=== PATIENT | male | born 1975 ===

== ENCOUNTER 2018-03-30 05:33 | Inpatient (IN) | payer OTHER ==
[2018-03-30 05:46] VITALS: BMI 21.2
[2018-03-30] MEDS ORDERED: Bacitracin 500 Units/gm Oint Foilpak UD TOP STA (05:46)
--- NOTE | 2018-03-30 05:54 | ED PDOC ---
Arrival/HPI - General Time Seen by Provider: 03/30/18 05:46 Historian: Patient, Other (employer) - History of Present Illness Narrative History of Present Illness (Text): you were treated in the ED today for hx of uptodate tetanus past 5 years and was doing some machinery work and injured the left 2nd finger with cut/blood but otherwise without any nausea/vomiting/headache/dizziness/difficulty breathing/chest pain/abdomen pain/numbness/tingling/loss of limb function/pain with urination. 03/30/18 05:48 03/30/18 05:48 03/30/18 05:48 Time/Duration: 1 hour Symptom Onset: Sudden Symptom Course: Unchanged Quality: Aching Severity Level: 2 Activities at Onset: Rest Context: Sitting Past Medical History - Provider Review Nursing Documentation Reviewed: Yes - Travel History Have you recently traveled outside [place] w/in the past 3 mons?: No Family/Social History - Physician Review Nursing Documentation Reviewed: Yes Family/Social History: No Known Family HX Allergies/Home Meds Allergies/Adverse Reactions: Allergies No Known Allergies Allergy (Verified 03/30/18 05:45) Home Medications: Home Meds Medication Instructions Recorded Confirmed No Known Home Med 03/30/18 03/30/18 Review of Systems - Review of Systems Constitutional: Normal Eyes: Normal ENT: Normal Respiratory: Normal Cardiovascular: Normal Gastrointestinal: Normal Genitourinary Male: Normal Musculoskeletal: Joint Swelling Skin: Normal Neurological: Normal Endocrine: Normal Hemo/Lymphatic: Normal Psychiatric: Normal Physical Exam Vital Signs Reviewed: Yes Vital Signs Temp Pulse Resp BP Pulse Ox 03/30/18 07:30 80 16 152/70 H 98 03/30/18 05:43 98.1 F 88 18 163/68 H 100 Temperature: Afebrile Blood Pressure: Hypertensive Pulse: Regular Respiratory Rate: Normal Appearance: Positive for: Well-Appearing, Non-Toxic, Comfortable Pain Distress: None Mental Status: Positive for: Alert and Oriented X 3 - Systems Exam Head: Present: Atraumatic, Normocephalic Pupils: Present: PERRL Extroacular Muscles: Present: EOMI Conjunctiva: Present: Normal Ears: Present: Normal Mouth: Present: Moist Mucous Membranes Pharnyx: Present: Normal Nose (External): Present: Atraumatic Nose (Internal): Present: Normal Inspection Neck: Present: Normal Range of Motion Respiratory/Chest: Present: Clear to Auscultation, Good Air Exchange Cardiovascular: Present: Regular Rate and Rhythm Abdomen: No: Tenderness, Distention, Normal Bowel Sounds, Peritoneal Signs, Rebound, Guarding, McBurney's Point Tender, Rovsing's Sign Present, Hernias, Feeding Tubes, Ostomy Tubes, Mass/Organomegaly, Scars, Other Back: Present: Normal Inspection Upper Extremity: Present: Other ( left 2nd fingertip injury/ with cut/blood but no active bleeding and fingernail slightly displaced at the top with discomfort , but otherwise good range of motion/warm/sensation/pink/good radial pulse and no other bony tenderness) Lower Extremity: Present: Normal Inspection Neurological: Present: GCS=15, CN II-XII Intact, Speech Normal, Motor Func Grossly Intact Skin: Present: Warm, Other (see UE) Psychiatric: Present: Alert, Oriented x 3, Normal Insight, Normal Concentration Medical Decision Making ED Course and Treatment: you were treated in the ED today for hx of uptodate tetanus past 5 years and was doing some machinery work and injured the left 2nd finger with cut/blood but otherwise without any nausea/vomiting/headache/dizziness/difficulty breathing/chest pain/abdomen pain/numbness/tingling/loss of limb function/pain with urination. You were otherwise breathing easily, smiling and talking with your employer, good strength/sensation, walking easily, clear lungs, no abdomen tenderness, left 2nd fingertip injury/ with cut/blood but no active bleeding and fingernail slightly displaced at the top with discomfort, but otherwise good range of motion/warm/sensation/pink/good radial pulse and no other bony tenderness, no fever temp 98.1, stable heart rate 88, stable breathing rate 18, excellent oxygen level 100% room air, elevated blood pressure 163/100 which we recommend repeat in 2-3 days primary care office to determine further treatment , left hand xray radiology left 2nd finger with distal tip fracture, keflex, motrin, percocet, anti-septic soak, observation, left 2nd finger nerve block and fingernail and finger now evaluated closely and significant thickened debris removed from fingertip without amputation noted but left 2nd finger medial laceration adjacent to fingernail which appears to be avulsed. d/w Dr. Restrepo orthopedics who stated npo, cbc, cmp, coags, iv cefazolin, ct left hand/ fingers and he will followup for possible operative management. 03/30/18 09:[address] Issa to fu ct, labs and Dr. Shetty orthopedics for final disposition. Reassessment Condition: Re-examined, Improved - RAD Interpretation Radiology Orders: 03/30/18 05:47 HAND LEFT 3 VIEWS ROUTINE [RAD] Stat 03/30/18 08:53 EXT UPPER W/O CONTRAST RIGHT [CT] Stat Diploma Maker: ED Physician (left hand xray with distal tip 2nd finger amputation w fracture) - Medication Orders Current Medication Orders: Discontinued Medications Bacitracin (Bacitracin) 1 ea TOP STAT STA Stop: 03/30/18 05:47 Last Admin: 03/30/18 06:02 Dose: 1 ea Cephalexin Monohydrate (Keflex) 500 mg PO STAT STA PRN Reason: Protocol Stop: 03/30/18 05:48 Last Admin: 03/30/18 06:03 Dose: 500 mg Ibuprofen (Motrin Tab) 800 mg PO STAT STA Stop: 03/30/18 05:47 Last Admin: 03/30/18 06:02 Dose: 800 mg Lidocaine HCl (Lidocaine 2% 20ml Vial) 10 ml IJ ONCE STA Stop: 03/30/18 07:59 Last Admin: 03/30/18 08:22 Dose: 10 ml Comments: Given to doctor to use Oxycodone/Acetaminophen (Percocet 5/325 Mg Tab) 1 tab PO STAT STA Stop: 03/30/18 08:27 Last Admin: 03/30/18 08:40 Dose: [address] [facility] Pain Assessment Document 03/30/18 08:40 [facility] [place]Rec[place] 03/30/18 08:40 [facility] [id number] Pain Reassessment Is this a pain reassessment? No Sleep Is patient sleeping during reassessment? No Presence of Pain Presence of Pain Yes Pain Scale Used Pain Scale Used Numeric Description Intensity of Pain at present 7 Disposition/Present on Arrival - Present on Arrival Any Indicators Present on Arrival: No - Disposition Have Diagnosis and Disposition been Completed?: Yes Diagnosis: Open finger fracture
[2018-03-30] MEDS ORDERED: Lidocaine 2% Inj (20ml) IJ STA (07:58)
[2018-03-30] MEDS ORDERED: Oxycodone/Acetaminophen 5/325 mg Tab PO STA (08:26)
[2018-03-30] MEDS ORDERED: ceFAZolin 1 gm in NS 1 GM/100 ML BAG IVPB STA (08:57)
[2018-03-30 09:57] LABS: BASO # 0.04 K/mm3 (0.0-2.0); BASO % 0.4 % (0.0-3.0); EOS # 0.2 (0.0-0.7); EOS % 1.5 % (1.5-5.0); GRAN # 6.97 (1.4-6.5); HEMOGLOBIN 16.7 g/dL (14.0-18.0); LYMPH # 2.3 (1.2-3.4); LYMPH % 22.7 % (22.0-35.0); MEAN CELL VOLUME 88.5 fl (80.0-105.0); MEAN CORPUSCULAR HEMOGLOBIN 31.5 pg (25.0-35.0); MEAN CORPUSCULAR HGB CONC 35.5 g/dl (31.0-37.0); MEAN PLATELET VOLUME 10.6 fl (7.0-11.0); MONO # 0.8 (0.1-0.6); MONO % 7.4 % (1.0-6.0); RBC 5.31 10^6/uL (3.5-6.1); RED CELL DISTRIBUTION WIDTH 12.3 % (11.5-14.5); WHITE BLOOD COUNT 10.3 10^3/ul (4.5-11.0)
[2018-03-30 10:01] LABS: INR 0.97 (0.93-1.08); PROTHROMBIN TIME 11.2 SECONDS (9.4-12.5)
[2018-03-30 10:06] LABS: ALB/GLOB RATIO 1.4 (1.1-1.8); ALBUMIN 4.7 g/dL (3.0-4.8); ALT/SGPT 131 U/L (7-56); AST/SGOT 63 U/L (17-59); BLOOD UREA NITROGEN 14 mg/dL (7-21); CALCIUM 9.6 mg/dL (8.4-10.5); GFR AFRICAN-AMERICAN > 60; GFR NON-AFRICAN AMERICAN > 60
--- NOTE | 2018-03-30 10:08 | RAD ---
PROCEDURE: Left Hand Radiographs. HISTORY: 42yoM, with lef 2nd finger injury COMPARISON: None. FINDINGS: BONES: There is a transverse angulated fracture through the 2nd distal phalanx JOINTS: Normal. No osteoarthritic changes. SOFT TISSUES: Normal. OTHER FINDINGS: None. IMPRESSION: There is a transverse angulated fracture through the 2nd distal phalanx
--- NOTE | 2018-03-30 10:53 | CT ---
PROCEDURE: HISTORY: 42M, please eval L hand from wrist to fingertips COMPARISON: None TECHNIQUE: FINDINGS: Transverse nondisplaced fracture of the distal phalanx of the 2nd digit. Extensive air and edema and infiltration of the 2nd digital soft tissues extending towards the dorsum of the hand. The remainder of the examination is unremarkable. IMPRESSION: Transverse nondisplaced fracture of the distal phalanx of the 2nd digit. Extensive air and edema and infiltration of the 2nd digital soft tissues extending towards the dorsum of the hand.
--- NOTE | 2018-03-30 13:57 | CP.PCM.HP ---
<Guanako Sherman - Last Filed: 03/30/18 14:37> History of Present Illness - History of Present Illness History of Present Illness: Medicine H&P for Dr. Tripathi cc: broken finger 42 M with no PMH presents to [facility] for complaint of left 2nd finger injury. Patient states that he works at a [employer] [place] and this morning he was using a mixing machine when he had an accident. The machine smashed his finger and he noticed the bone sticking out. Patient reports that he had a tetanus booster 5 years ago. He rates pain as severe. He describes it as constant and throbbing. Denies any alleviating or aggravating factors. Denies fever/chills, chest pain, SOB, abdominal pain, nausea/vomiting, diarrhea or urinary symptoms. PMH: denies Meds: denies Allergy: denied PSH: denies FH: denes Social: denies tobacco/EtOH/illicit drug use, lives with and 4 kids, works in bakery Present on Admission - Present on Admission Any Indicators Present on Admission: No History of DVT/PE: No History of Uncontrolled Diabetes: No Urinary Catheter: No Decubitus Ulcer Present: No Decubitus Ulcer Stage: Unstageable History Surgical Site Infection Following: None Review of Systems - Review of Systems All systems: reviewed and no additional remarkable complaints except (as per hpi ) Past Patient History - Past Social History Smoking Status: Never Smoked - PSYCHIATRIC Hx Substance Use: No - SURGICAL HISTORY Hx Surgeries: No Meds Allergies/Adverse Reactions: Allergies Allergy/AdvReac Type Severity Reaction Status Date / Time No Known Allergies Allergy Verified 03/30/18 05:45 Physical Exam - Constitutional Appears: No Acute Distress - Head Exam Head Exam: ATRAUMATIC, NORMOCEPHALIC - Eye Exam Eye Exam: EOMI, Normal appearance Pupil Exam: PERRL - ENT Exam ENT Exam: Mucous Membranes Moist - Neck Exam Neck exam: Positive for: Full Rom - Respiratory Exam Respiratory Exam: Clear to Auscultation Bilateral, NORMAL BREATHING PATTERN - Cardiovascular Exam Cardiovascular Exam: REGULAR RHYTHM, +S1, +S2 - GI/Abdominal Exam GI & Abdominal Exam: Normal Bowel Sounds, Soft. absent: Tenderness - Extremities Exam Extremities exam: Positive for: normal capillary refill, pedal pulses present Additional comments: Left hand 2nd digit with communicating fracture covered with dressing - Back Exam Back exam: absent: CVA tenderness (L), CVA tenderness (R) - Neurological Exam Neurological exam: Alert, CN II-XII Intact, Oriented x3 - Psychiatric Exam Psychiatric exam: Normal Affect, Normal Mood - Skin Skin Exam: Dry, Warm Results - Vital Signs Recent Vital Signs: Last Vital Signs Temp 98.3 F 03/30/18 13:04 Pulse 75 03/30/18 13:17 Resp 18 03/30/18 13:04 BP 135/71 03/30/18 13:04 Pulse Ox 98 03/30/18 13:04 - Labs Result Diagrams: 03/30/18 09:49 03/30/18 09:49 Assessment & Plan - Assessment and Plan (Free Text) Assessment: 42 M with no PMH presents for Left 2nd finger communicating fracture Plan: Left 2nd Finger Fracture -NPO -Ortho consult, Dr. Restrepo, help appreciated -OR today for repair -Ancef given in ED -Tetanus status up-to-date -Percocet PRN for mod pain -Motrin PRN for mild pain Transaminitis -f/u HIV, Hep panel, RPR -Monitor LFTs Case seen and discussed with Dr. Deuce Sherman PGY1 - Date & Time Date: 03/30/18 Time: 13:00 <Jasmyne Tripathi - Last Filed: 03/30/18 17:02> Results - Vital Signs Recent Vital Signs: Last Vital Signs Temp 97.4 F L 03/30/18 16:21 Pulse 63 03/30/18 16:21 Resp 13 03/30/18 16:21 BP 126/78 03/30/18 16:21 Pulse Ox 97 03/30/18 16:21 - Labs Result Diagrams: 03/30/18 09:49 03/30/18 09:49 Attending/Attestation - Attestation I have personally seen and examined this patient.: Yes I have fully participated in the care of the patient.: Yes I have reviewed all pertinent clinical information: Yes Notes (Text): 03/30/18 16:58 Medical record note made by the resident after discussion with my direction and input after the patient was personally seen and examined by me. I have reviewed the chart and agree that the record accurately reflects by personal performance of the history, physical exam, data review, and medical decision-making, in the course for the patient. I have also personally directed the plan of care. 42 M with no PMH with left index finger transverse fracture of distal phalanx .He was evaluated by orthopediac and is going for surgery today. Patient is also found to have elevated transaminase, denies any history of alcohol, drug abuse or hepatitis. We will check hepatitis profile and HIV.
[2018-03-30] MEDS ORDERED: HYDROmorphone 0.5 mg/0.5 ml ISec IVP PRN ×2 (14:03→16:24)
[2018-03-30] MEDS ORDERED: Propofol 10 mg/ml Inj (20 ML) ONE (14:09)
[2018-03-30] MEDS ORDERED: Midazolam 2 MG/2 ML VIAL ONE (14:09)
[2018-03-30] MEDS ORDERED: Rocuronium 10 mg/ml (5 ml) ONE (14:09)
[2018-03-30] MEDS ORDERED: Lactated Ringer's 1,000 ML IV SCH ×2 (14:15→16:30)
--- NOTE | 2018-03-30 14:37 | CP.PCM.CON ---
History of Present Illness - History of Present Illness History of Present Illness: Orthopedic consultation Dr. 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 RHD. Denies pain to other areas or fingers. non smoker NKDA PSH: circ PMH: denies Review of Systems - Review of Systems All systems: reviewed and no additional remarkable complaints except - Musculoskeletal Musculoskeletal: As Per HPI Past Patient History - Past Medical History & Family History Past Family History: Reviewed and not pertinent - Past Social History Smoking Status: Never Smoked - CARDIAC Hx Pacemaker: No - NEUROLOGICAL Hx Paralysis: No - MUSCULOSKELETAL/RHEUMATOLOGICAL Hx Musculoskeletal Disorders: No - PSYCHIATRIC Hx Substance Use: No - SURGICAL HISTORY Hx Surgeries: No Meds Allergies/Adverse Reactions: Allergies Allergy/AdvReac Type Severity Reaction Status Date / Time No Known Allergies Allergy Verified 03/30/18 05:45 - Medications Medications: Current Medications Hydromorphone HCl (Dilaudid) 0.5 mg IVP Q15M PRN PRN Reason: Pain, moderate (4-7) Stop: 03/30/18 16:03 Lactated Ringer's (Lactated Ringer's) 1,000 mls @ 75 mls/hr IV .[id number] SALLY Stop: 03/30/18 16:16 Ibuprofen (Motrin Tab) 400 mg PO Q6H PRN PRN Reason: Pain, Mild (1-3) Oxycodone/Acetaminophen (Percocet 5/325 Mg Tab) 1 tab PO Q4 PRN PRN Reason: Pain, moderate (4-7) Stop: 04/02/18 13:59 Physical Exam - Constitutional Appears: Well, In Acute Distress - Extremities Exam Additional comments: Left index finger: avulsion of nail from nail fold, small lac to side of finger , bleeding but controlled. tip of finger flexed. Complains of pain when touching tip of finger Results - Vital Signs Recent Vital Signs: Last Vital Signs Temp 97.7 F 03/30/18 14:05 Pulse 78 03/30/18 14:05 Resp 20 03/30/18 14:05 BP 137/80 03/30/18 14:05 Pulse Ox 99 03/30/18 14:05 - Labs Result Diagrams: 03/30/18 09:49 03/30/18 09:49 - Impressions Impression: atient Name / ID : NATA EDWARD / [id number] Exam Date : 03/30/2018 09:50:49 ( Approved ) Study Comment : Sex / Age : M / 42Y Creator : Tyree Trevizo MD Dictator : Tyree Trevizo MD Supervisor Laboratory : [employer] Supervisor : Tyree Trevizo MD Approver2 : Report Date : 03/30/2018 10:51:44 My Comment : PROCEDURE: HISTORY: 42M, please eval L hand from wrist to fingertips COMPARISON: None TECHNIQUE: FINDINGS: Transverse nondisplaced fracture of the distal phalanx of the 2nd digit. Extensive air and edema and infiltration of the 2nd digital soft tissues extending towards the dorsum of the hand. The remainder of the examination is unremarkable. IMPRESSION: Transverse nondisplaced fracture of the distal phalanx of the 2nd digit. Extensive air and edema and infiltration of the 2nd digital soft tissues extending towards the dorsum of the hand. Assessment & Plan (1) Open fracture of distal phalanx of left index finger Assessment and Plan: NPO for OR for I&D, possible pinning, possible nail bed repair, possible tendon repair risks/benefits/alt of surgery discussed with patient with Dr. Restrepo and culturally competent meter readers supervisor at bedside. Patient verbalized understanding, questions answered, and consents to above procedure Status: Acute (2) Avulsion of nail bed Status: Acute
[2018-03-30] MEDS ORDERED: Glycopyrrolate 0.2 mg/ml (2ml vial) ONE (15:35)
[2018-03-30] MEDS ORDERED: Neostigmine Methylsulfate 3mg/3ml Syringe IV ONE (15:36)
--- NOTE | 2018-03-30 16:21 | RAD ---
PROCEDURE: Fluoroscopy up to 1 hour HISTORY: LEFT SECOND DIGIT DISTAL PHALANX FX COMPARISON: TECHNIQUE: Fluoroscopy was provided in the operating room. 7.1 seconds of fluoro time with accumulative dose of 0.12 mGy. Two images were submitted showing a orthopedic can running longitudinally through the mid and distal phalanx of the 2nd digit FINDINGS: As above IMPRESSION: As above
--- NOTE | 2018-03-30 16:23 | PCM.SURG1 ---
Surgeon's Initial Post Op Note - Surgeon's Notes Surgeon: Penny Restrepo MD Statistical Modeler: Kayleigh Smith PA-C Type of Anesthesia: General Endo Anesthesia Administered By: Pre-Operative Diagnosis: Leftindex finger distal phalanx open fracture. Nail bed avulsion Operative Findings: tourniquet @250mmHg 37min Post-Operative Diagnosis: same Operation Performed: 1.Left index finger distal phalanx pinning. 2. Left finger nail bed repair. 3. Irrigation and debridement left index finger. Specimen/Specimens Removed: nail, nail bed, cx x 8 Estimated Blood Loss: EBL {In ML}: 5 Drains Used: No Drains Post-Op Condition: Fair Date of Surgery/Procedure: 03/30/18 Time of Surgery/Procedure: 16:24
[2018-03-30] MEDS ORDERED: HYDROmorphone 0.5 mg/0.5 ml ISec ONE ×2 (16:43→17:02)
[2018-03-30] MEDS ORDERED: HYDROmorphone 0.5 mg/0.5 ml ISec IVP ONE (16:44)
[2018-03-30 19:32] LABS: FLUID TYPE SYNOVIAL FLUID
[2018-03-30] MEDS: Oxycodone/Acetaminophen 5/325 mg Tab PO PRN (19:43)
[2018-03-30 20:56] LABS: SF GROSS APPEARANCE CLEAR (CLEAR); SYNOVIAL FLUID COMMENT COLORLESS
[2018-03-30 21:21] LABS: HEPATITIS B SURFACE AG Negative (NEGATIVE)
[2018-03-30 21:27] LABS: HEPATITIS A IGM NEGATIVE (NEGATIVE); HEPATITIS B CORE AB NEGATIVE (NEGATIVE)
[2018-03-30] MEDS ORDERED: Pneumococcal 23-Valent Vaccine IM ONE (21:36)
[2018-03-30 21:39] LABS: HEPATITIS C ANTIBODY NEGATIVE (NEGATIVE)
[2018-03-30] MEDS: ceFAZolin 2 GM in Sodium Chloride 0.9% 100 ML IVPB SCH (21:58)
[2018-03-31] MEDS: Oxycodone/Acetaminophen 5/325 mg Tab PO PRN ×2 (00:17→10:03)
[2018-03-31] MEDS: ceFAZolin 2 GM in Sodium Chloride 0.9% 100 ML IVPB SCH (05:48)
[2018-03-31 07:33] LABS: BASO # 0.05 K/mm3 (0.0-2.0); BASO % 0.8 % (0.0-3.0); EOS # 0.4 (0.0-0.7); EOS % 5.3 % (1.5-5.0); GRAN # 3.08 (1.4-6.5); GRAN % 46.3 % (50.0-68.0); HEMOGLOBIN 14.4 g/dL (14.0-18.0); LYMPH # 2.2 (1.2-3.4); LYMPH % 33.6 % (22.0-35.0); MEAN CELL VOLUME 90.1 fl (80.0-105.0); MEAN CORPUSCULAR HEMOGLOBIN 30.8 pg (25.0-35.0); MEAN CORPUSCULAR HGB CONC 34.2 g/dl (31.0-37.0); MEAN PLATELET VOLUME 10.4 fl (7.0-11.0); MONO # 0.9 (0.1-0.6); RBC 4.67 10^6/uL (3.5-6.1); RED CELL DISTRIBUTION WIDTH 12.5 % (11.5-14.5); WHITE BLOOD COUNT 6.6 10^3/ul (4.5-11.0)
[2018-03-31 08:14] VITALS: BP 102/82; PULSE 63; RESP 20; TEMP 98.5; O2SAT 98
[2018-03-31 08:18] LABS: ALB/GLOB RATIO 1.3 (1.1-1.8); ALBUMIN 3.6 g/dL (3.0-4.8); ALT/SGPT 99 U/L (7-56); AST/SGOT 56 U/L (17-59); BLOOD UREA NITROGEN 12 mg/dL (7-21); CALCIUM 8.3 mg/dL (8.4-10.5); GFR AFRICAN-AMERICAN > 60; GFR NON-AFRICAN AMERICAN > 60
--- NOTE | 2018-03-31 09:55 | RAD ---
PROCEDURE: Left Hand Radiographs. HISTORY: s/p pinning COMPARISON: None. FINDINGS: BONES: There is a longitudinal pin through the 2nd mid and distal phalanx. There is anatomic alignment JOINTS: Normal. No osteoarthritic changes. SOFT TISSUES: Normal. OTHER FINDINGS: None. IMPRESSION: As above
--- NOTE | 2018-03-31 12:08 | CP.PCM.DIS ---
<Guanako Sherman - Last Filed: 03/31/18 13:30> Provider - Provider Date of Admission: 03/30/18 11:51 Attending physician: Ida Mcrae MD Consults: Ortho: Dr. Restrepo Time Spent in preparation of Discharge (in minutes): 40 Diagnosis - Discharge Diagnosis (1) Avulsion of nail bed Status: Acute (2) Open fracture of distal phalanx of left index finger Status: Acute Hospital Course - Lab Results Lab Results: Most Recent Lab Values WBC 6.6 10^3/ul (4.5-11.0) D 03/31/18 07:00 RBC 4.67 10^6/uL (3.5-6.1) 03/31/18 07:00 Hgb 14.4 g/dL (14.0-18.0) D 03/31/18 07:00 Hct 42.1 % (42.0-52.0) 03/31/18 07:00 MCV 90.1 fl (80.0-105.0) 03/31/18 07:00 MCH 30.8 pg (25.0-35.0) 03/31/18 07:00 MCHC 34.2 g/dl (31.0-37.0) 03/31/18 07:00 RDW 12.5 % (11.5-14.5) 03/31/18 07:00 Plt Count 263 10^3/uL (120.0-450.0) 03/31/18 07:00 MPV 10.4 fl (7.0-11.0) 03/31/18 07:00 Gran % 46.3 % (50.0-68.0) L 03/31/18 07:00 Lymph % (Auto) 33.6 % (22.0-35.0) 03/31/18 07:00 Harlan % (Auto) 14.0 % (1.0-6.0) H 03/31/18 07:00 Eos % (Auto) 5.3 % (1.5-5.0) H 03/31/18 07:00 Baso % (Auto) 0.8 % (0.0-3.0) 03/31/18 07:00 Gran # 3.08 (1.4-6.5) 03/31/18 07:00 Lymph # (Auto) 2.2 (1.2-3.4) 03/31/18 07:00 Harlan # (Auto) 0.9 (0.1-0.6) H 03/31/18 07:00 Eos # (Auto) 0.4 (0.0-0.7) 03/31/18 07:00 Baso # (Auto) 0.05 K/mm3 (0.0-2.0) 03/31/18 07:00 PT 11.2 SECONDS (9.4-12.5) 03/30/18 09:49 INR 0.97 (0.93-1.08) 03/30/18 09:49 Sodium 145 mmol/L (132-148) 03/31/18 07:00 Potassium 4.0 mmol/L (3.6-5.0) 03/31/18 07:00 Chloride 109 mmol/L (98-107) H 03/31/18 07:00 Carbon Dioxide 26 mmol/L (21-33) 03/31/18 07:00 Anion Gap 14 (10-20) 03/31/18 07:00 BUN 12 mg/dL (7-21) 03/31/18 07:00 Creatinine 0.8 mg/dl (0.8-1.5) 03/31/18 07:00 Est GFR ( Amer) > 60 03/31/18 07:00 Est GFR (Non-Af Amer) > 60 03/31/18 07:00 Random Glucose 96 mg/dL (70-110) 03/31/18 07:00 Calcium 8.3 mg/dL (8.4-10.5) L 03/31/18 07:00 Total Bilirubin 0.5 mg/dL (0.2-1.3) 03/31/18 07:00 AST 56 U/L (17-59) 03/31/18 07:00 ALT 99 U/L (7-56) H 03/31/18 07:00 Alkaline Phosphatase 69 U/L (38-126) 03/31/18 07:00 Total Protein 6.4 g/dL (5.8-8.3) 03/31/18 07:00 Albumin 3.6 g/dL (3.0-4.8) 05/15/18 07:00 Globulin 2.8 gm/dL 03/31/18 07:00 Albumin/Globulin Ratio 1.3 (1.1-1.8) 03/31/18 07:00 Fluid Type Synovial fluid 03/30/18 17:32 Fluid Source Cancelled 03/30/18 19:20 Fluid Appearance Cancelled 03/30/18 19:20 Fluid WBC Cancelled 03/30/18 19:20 Fluid RBC Cancelled 03/30/18 19:20 Fluid Tot Cell Count Cancelled 03/30/18 19:20 Fluid Neutrophils Cancelled 03/30/18 19:20 Fluid Lymphocytes Cancelled 03/30/18 19:20 Fld Monocyte/Macrophag Cancelled 03/30/18 19:20 Fluid Comment Cancelled 03/30/18 19:20 Synovial WBC 0.0 /uL (0.0-150.0) 03/30/18 17:32 Synovial RBC TEST NOT PERFORMED 03/30/18 17:32 Synov Monos/Macrophage TEST NOT PERFORMED 03/30/18 17:32 Synovial Fluid Comment Colorless 03/30/18 17:32 RPR Nonreactive (NONREACTIVE) 03/30/18 17:00 Hepatitis A IgM Ab Negative (NEGATIVE) 03/30/18 17:00 Hep Bs Antigen Negative (NEGATIVE) 03/30/18 17:00 Hep B Core IgM Ab Negative (NEGATIVE) 03/30/18 17:00 Hepatitis C Antibody Negative (NEGATIVE) 03/30/18 17:00 - Hospital Course Hospital Course: 42 M with no PMH presents to [facility] for complaint of left 2nd finger injury. 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 The machine smashed his finger and he noticed the bone sticking out. Patient reports that he had a tetanus booster 5 years ago. He rates pain as severe. He describes it as constant and throbbing. Denies any alleviating or aggravating factors. Denies fever/chills, chest pain, SOB, abdominal pain, nausea/vomiting, diarrhea or urinary symptoms. Patient was admitted and immediately taken to the OR. Ortho repair the fracture with pin and did an irrigation and debridement. Overnight, the patient did well. He complained of mild pain which was controlled with pain medications. He tolerated regular diet. The following morning, patient's labs were at baseline. He was deemed medically stable for discharge by Dr. Tripathi and Dr. Restrepo. Patient sent home with Keflex for 7 days. He is to follow up with Ortho within 1 -2 weeks. (This is as summary of the hospital course. Please refer to EMR for more details.) Discharge Exam - Head Exam Head Exam: ATRAUMATIC, NORMOCEPHALIC - Eye Exam Eye Exam: EOMI, Normal appearance Pupil Exam: PERRL - ENT Exam ENT Exam: Mucous Membranes Moist - Neck Exam Neck exam: Normal Inspection - Respiratory Exam Respiratory Exam: Clear to PA & Lateral, NORMAL BREATHING PATTERN - Cardiovascular Exam Cardiovascular Exam: REGULAR RHYTHM, +S1, +S2 - GI/Abdominal Exam GI & Abdominal Exam: Normal Bowel Sounds, Soft. absent: Tenderness - Extremities Exam Additional comments: Left handed elevated and wrapped in estefania bandages with splint - clean, dry, intact - Back Exam Back exam: absent: CVA tenderness (L), CVA tenderness (R) - Neurological Exam Neurological exam: Alert, CN II-XII Intact, Normal Gait, Oriented x3 - Psychiatric Exam Psychiatric exam: Normal Affect, Normal Mood - Skin Skin Exam: Dry, Intact, Normal Color, Warm Discharge Plan - Discharge Medications Prescriptions: Cephalexin [Keflex] 500 mg PO Q12 #14 capsule - Follow Up Plan Condition: GOOD Disposition: HOME/ ROUTINE Instructions: Finger Fracture (DC), Open Fracture Reduction Surgery (DC), Nail Avulsion (DC) Additional Instructions: Take Keflex as prescribed for 7 days follow up with Orthopedics and PMD within 1 week Keep arm elevated at home Take OTC motrin for pain as needed Please return to ED if symptoms persist or condition worsens Referrals: Ebenezer Restrepo III, MD [Medical Doctor] - Clinic,Med Surg [Non-Staff] - <Jasmyne Tripathi - Last Filed: 03/31/18 14:33> Provider - Provider Date of Admission: 03/30/18 11:51 Attending physician: Ida Mcrae MD Hospital Course - Lab Results Lab Results: Most Recent Lab Values WBC 6.6 10^3/ul (4.5-11.0) D 03/31/18 07:00 RBC 4.67 10^6/uL (3.5-6.1) 03/31/18 07:00 Hgb 14.4 g/dL (14.0-18.0) D 03/31/18 07:00 Hct 42.1 % (42.0-52.0) 03/31/18 07:00 MCV 90.1 fl (80.0-105.0) 03/31/18 07:00 MCH 30.8 pg (25.0-35.0) 03/31/18 07:00 MCHC 34.2 g/dl (31.0-37.0) 03/31/18 07:00 RDW 12.5 % (11.5-14.5) 03/31/18 07:00 Plt Count 263 10^3/uL (120.0-450.0) 03/31/18 07:00 MPV 10.4 fl (7.0-11.0) 03/31/18 07:00 Gran % 46.3 % (50.0-68.0) L 03/31/18 07:00 Lymph % (Auto) 33.6 % (22.0-35.0) 03/31/18 07:00 Harlan % (Auto) 14.0 % (1.0-6.0) H 03/31/18 07:00 Eos % (Auto) 5.3 % (1.5-5.0) H 03/31/18 07:00 Baso % (Auto) 0.8 % (0.0-3.0) 03/31/18 07:00 Gran # 3.08 (1.4-6.5) 03/31/18 07:00 Lymph # (Auto) 2.2 (1.2-3.4) 03/31/18 07:00 Harlan # (Auto) 0.9 (0.1-0.6) H 03/31/18 07:00 Eos # (Auto) 0.4 (0.0-0.7) 03/31/18 07:00 Baso # (Auto) 0.05 K/mm3 (0.0-2.0) 03/31/18 07:00 PT 11.2 SECONDS (9.4-12.5) 03/30/18 09:49 INR 0.97 (0.93-1.08) 03/30/18 09:49 Sodium 145 mmol/L (132-148) 03/31/18 07:00 Potassium 4.0 mmol/L (3.6-5.0) 03/31/18 07:00 Chloride 109 mmol/L (98-107) H 03/31/18 07:00 Carbon Dioxide 26 mmol/L (21-33) 03/31/18 07:00 Anion Gap 14 (10-20) 03/31/18 07:00 BUN 12 mg/dL (7-21) 03/31/18 07:00 Creatinine 0.8 mg/dl (0.8-1.5) 03/31/18 07:00 Est GFR ( Amer) > 60 03/31/18 07:00 Est GFR (Non-Af Amer) > 60 03/31/18 07:00 Random Glucose 96 mg/dL (70-110) 03/31/18 07:00 Calcium 8.3 mg/dL (8.4-10.5) L 03/31/18 07:00 Total Bilirubin 0.5 mg/dL (0.2-1.3) 03/31/18 07:00 AST 56 U/L (17-59) 03/31/18 07:00 ALT 99 U/L (7-56) H 03/31/18 07:00 Alkaline Phosphatase 69 U/L (38-126) 03/31/18 07:00 Total Protein 6.4 g/dL (5.8-8.3) 03/31/18 07:00 Albumin 3.6 g/dL (3.0-4.8) 03/31/18 07:00 Globulin 2.8 gm/dL 03/31/18 07:00 Albumin/Globulin Ratio 1.3 (1.1-1.8) 03/31/18 07:00 Fluid Type Synovial fluid 03/30/18 17:32 Fluid Source Cancelled 03/30/18 19:20 Fluid Appearance Cancelled 03/30/18 19:20 Fluid WBC Cancelled 03/30/18 19:20 Fluid RBC Cancelled 03/30/18 19:20 Fluid Tot Cell Count Cancelled 03/30/18 19:20 Fluid Neutrophils Cancelled 03/30/18 19:20 Fluid Lymphocytes Cancelled 03/30/18 19:20 Fld Monocyte/Macrophag Cancelled 03/30/18 19:20 Fluid Comment Cancelled 03/30/18 19:20 Synovial WBC 0.0 /uL (0.0-150.0) 03/30/18 17:32 Synovial RBC TEST NOT PERFORMED 03/30/18 17:32 Synov Monos/Macrophage TEST NOT PERFORMED 03/30/18 17:32 Synovial Fluid Comment Colorless 03/30/18 17:32 RPR Nonreactive (NONREACTIVE) 03/30/18 17:00 Hepatitis A IgM Ab Negative (NEGATIVE) 03/30/18 17:00 Hep Bs Antigen Negative (NEGATIVE) 03/30/18 17:00 Hep B Core IgM Ab Negative (NEGATIVE) 03/30/18 17:00 Hepatitis C Antibody Negative (NEGATIVE) 03/30/18 17:00 Attending/Attestation - Attestation I have personally seen and examined this patient.: Yes I have fully participated in the care of the patient.: Yes I have reviewed all pertinent clinical information, including history, physical exam and plan: Yes Notes (Text): 03/31/18 14:29 Medical record note made by the resident after discussion with my direction and input after the patient was personally seen and examined by me. I have reviewed the chart and agree that the record accurately reflects by personal performance of the history, physical exam, data review, and medical decision-making, in the course for the patient. I have also personally directed the plan of care. Patient underwent Left index finger distal phalanx pinning, Left finger nail bed repair and Irrigation and debridement left index finger yesterday.He remain stable after the surgery.He is afebrile.He has been cleared by ortho for discharge.He will be discharged home on oral Keflex.He will follow up with Orthopediac and [facility] clinic.AST and COY are coming down.Hepatitis panel is negative.He was given education about alcohol and drug abuse. Management plan was discussed in detail with patient. Education was provided. 03/31/18 14:32
--- NOTE | 2018-03-31 19:34 | OP ---
PROCEDURE DATE: 03/31/2018 PREOPERATIVE DIAGNOSES: Laceration, open fracture of distal phalanx, left index finger. POSTOPERATIVE DIAGNOSES: 1. Open fracture of distal phalanx, left index finger. 2. Nail bed injury. 3. Partial nail avulsion. 4. Laceration, distal tuft of the finger. SURGEON: Ebenezer Restrepo MD SOLAR ENERGY INSTALLATION MANAGER: Emi Conrad PA-C SECOND LAST TURNER: Annie Blas, certified registered nursing heel sprayer first. TYPE OF ANESTHESIA: General endotracheal anesthesia. COMPLICATIONS: No complications. DRAINS: No drains. 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 The patient was working on a bread machine when it sliced and sliced obliquely into the distal phalanx of the index finger causing fracture, nail bed injury, and partial nail avulsion. The patient was seen in the ER. Discussion was had by me with the ER physician and it is deemed by me that the patient should go to the OR for irrigation, open reduction and internal fixation, and nail bed repair. Pros, cons, risks, and benefits of the proposed procedure were discussed at length with the patient through the culturally competent engineering operator that was provided in the holding area. Again, the possibility of nerve injury, mechanical failure, infection, secondary or tertiary surgery was discussed, indeed a guaranteed secondary surgery for pin removal was discussed, the possibility even of amputation and infection was discussed. The patient is well aware and consents to the procedure. Alternative procedures have been discussed including benign neglect and just treating with p.o. antibiotics. OPERATIVE PROCEDURE IN DETAIL: After having obtained informed consent through the culturally competent engineering operator in the above fashioned description, with the patient identified as Robinson Lopez in the supine position with all bony prominences well padded, the left upper extremity was prepped and free draped in the usual fashion for upper extremity surgery. The operation was performed under 2.0 magnification glasses. A tourniquet had been applied, but was not yet inflated. After exsanguinating the limb using a 4-inch Esmarch bandage, tourniquet which had been applied was inflated to 250 mmHg. Under the surgeon's direction, the fluoroscope was positioned. Video images were generated and therapeutic decisions were made therefrom. Thorough irrigation was accomplished with 1 L of antibiotic infused saline. This having been accomplished, the nail bed was found to be partially avulsed. The initial procedure was to carefully dissect the nail and remove the nail from the distal phalanx. The distal phalanx was thoroughly irrigated. Having thoroughly accomplished this, cultures were accomplished aerobic, anaerobic, AFB, fungal, stat Gram stain, and number of white cells per high-power field. This having been accomplished, the fracture was reduced. Again, under the surgeon's direction, the fluoroscope was positioned. Video images were generated, therapeutic decisions were made therefrom. An incision was made in the distal phalanx at the distal point using a #11 blade. The K-wire was introduced through the distal phalanx across the DIP joint into the middle phalanx. This having been accomplished, verification of position was offered on AP and lateral image intensification views. This having been accomplished, the nail bed was removed. Nail bed having been removed, the nail fold was carefully elevated using a #15 blade and the laceration was identified. Laceration on the radial aspect of the distal tip of the index finger was closed using interrupted nylon suture. At this point in time, the nail bed was repaired to the nail fold and the nail bed matrix was repaired using interrupted nylon sutures. This having been accomplished, great care was taken to avoid infolding of the nail fold. Verification of position was offered on AP and lateral image intensification views. K-wire was bent. A Xeroform was used on the avulsed nail surface. Compression dressing and a splint having been applied. OPERATIVE PROCEDURES: 1. Open reduction and internal fixation of distal phalanx fracture. 2. Primary repair of nail bed, left index finger. 3. Removal of index finger nail. 4. Primary repair of laceration. 5. Irrigation and debridement of the open fracture. 6. Splint application. 7. Positioning of fluoroscope,interpretation of video images. Ebenezer Restrepo MD
== END 2018-03-31 14:11 | disposition home or self-care (01) | DRG 514 ==
LOC: ED 05:33 → ERH 11:51 → 5RSO 17:50
PROVIDERS: ADMIT Internal Medicine; ATTEND Internal Medicine
PROC: 0PSV04Z Reposition Left Finger Phalanx with Internal Fixation Device, Open Approach (ICD-10-PCS; principal; 2018-03-31)
PROC: 0HQQXZZ Repair Finger Nail, External Approach (ICD-10-PCS; 2018-03-31)
PROC: 0XQP0ZZ Repair Left Index Finger, Open Approach (ICD-10-PCS; 2018-03-31)
PROC: 0HDQXZZ Extraction of Finger Nail, External Approach (ICD-10-PCS; 2018-03-31)
DX: S62.631B Displaced fracture of distal phalanx of left index finger, initial encounter for open fracture (principal); S61.311A Laceration without foreign body of left index finger with damage to nail, initial encounter; W31.89XA Contact with other specified machinery, initial encounter; Y93.G3 Activity, cooking and baking; Y92.89 Other specified places as the place of occurrence of the external cause; Y99.0 Civilian activity done for income or pay